=== PATIENT | female | born 1965 | race Caucasian/White ===

== ENCOUNTER 2024-11-15 14:39 | Outpatient (AMB) | payer OTHER, SELFPAY ==
--- NOTE | 2024-11-15 14:40 | MHC.OFFWIV ---
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 Patient states she was breaking up her 2 cats when she was scratched and bit on her anterior chest wall and arms bilaterally. Of concern today, however is a laceration on the back of her head that she believes was due to a cat scratch. Patient states that last night she took a shower and cleansed it with soap. Patient denies having any fevers, chills, discharge from any of the lesions noted. Patient believes her tetanus immunization is up-to-date. [facility]LY [facility] Social History Patient Tobacco Use Status: Never used Tobacco Patient : No Review of Systems Const All systems reviewed & are unremarkable except as noted in HPI and below Denies chills, Denies fever(s), Reports headache(s) and Denies malaise ENT Denies dizziness and Reports headache(s) GI Denies nausea and Denies vomiting Skin/Breast Details: Multiple abrasions Neuro Reports no additional complaints, Denies confusion, Denies dizziness and Reports headache(s) Psych Reports no additional complaints and Denies confusion Physical Exam Vital Signs: Last Vital Signs Temp 98.8 F 11/15/24 14:41 Pulse 90 11/15/24 14:41 BP 138/84 11/15/24 14:41 Pulse Ox 98 11/15/24 14:41 Oxygen Delivery Method Room Air 11/15/24 14:41 BMI result Body Mass Index 29.9 Const General: cooperative, healthy appearing, comfortable, no acute distress, well developed, alert, awake and Physically active; No acute distress or confusion Nutritional Appearance: overweight Orientation/consciousness: patient oriented x3 and No confusion Limitations: no limitations HEENT Head: Yes scalp lesion (1.5cm linear laceration right parietal region; no active bleeding) Skin Other: Multiple linear surface abrasions and puncture wounds on the upper extremities bilaterally with associated minimal ecchymosis, no surrounding erythema, no discharge, mild tenderness to direct examination Neuro General: patient oriented x3, CN's II-XI intact bilaterally and No confusion Psych Appearance: grossly normal Mental Status: mental status grossly normal Insight: Good insight present (Psych) Judgement: Good judgement present (Psych) Assessment & Plan Assessment & Plan (1) Cat bite: Comment: Patient has multiple bites, abrasions and a laceration on her posterior scalp as a result of the cat fight. The lesion on her scalp is cleansed with sterile saline and povidone solution. Patient will be discharged home with prophylactic antibiotic therapy. Code(s): W55.01XA - Bitten by cat, initial encounter Qualifiers: Encounter type: initial encounter Qualified Code(s): W55.01XA - Bitten by cat, initial encounter Plan: Augmentin 875 b.i.d. x 5 days; patient is instructed to follow up fevers, chills, discharge from the lesions or any other concerns related to her injuries. Patient is in agreement with this plan of care. Medications: New amoxicillin-pot clavulanate 875-125 mg 1 tab PO Q12H 10 tabs 0RF Coding Level of Care Code New Pt Level 4 (93520) Diagnoses Cat bite, initial encounter W55.01XA Encounter type: initial encounter Time Spent (min) 20
[2024-11-15 14:41] VITALS: BP 138/84; PULSE 90; TEMP 37.1; O2SAT 98; BMI 29.9
--- OUTSIDE RECORDS SUMMARY | 2024-11-15 14:41 | XMS_ITS | Patient Health Record ---
Author Organization [facility] Address [address] [place] [address] [address] [place] [address] Care Team Providers Care Dispatch Associate Name Role Phone Dacia Enriquez Unavailable [phone] Reason For Referral No Information Problems Problem Type SNOMED Code ICD Code Onset Dates Problem Status W/U Status Risk Notes Problem Postmenopausal bleeding (84144946) Postmenopausal bleeding (N95.0) Active confirmed Problem Postcoital bleeding (87435821) Postcoital and contact bleeding (N93.0) Active confirmed Problem Asymptomatic microscopic hematuria (3225910362412092 9) Asymptomatic microscopic hematuria (R31.21) Active confirmed Problem 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 (219.1) Active confirmed Major Problem Migraine (disorder) (35993912) Migraine, unspecified without mention of intractable migraine without mention of status migrainosus (346.90) Active confirmed Major Problem Cyst of ovary (37509704) Other and unspecified ovarian cyst (620.2) Active confirmed Major Problem Allergy (109251710) Allergy, unspecified not elsewhere classified (995.3) Active confirmed Diag Problem Gynecological examination normal (838876617895525) Routine gynecological examination (V72.31) Active confirmed Problem Dietary management surveillance (327255483) Dietary surveillance and counseling (V65.3) Active confirmed Diag Problem Exercises teaching, guidance, and counseling (822879438) Exercise counseling (V65.41) Active confirmed Diag Plan Of Treatment Pending Test Test Name Order Date MAMMOGRAM, SCREENING 10/22/2014 Urinalysis 10/22/2014 Urinalysis 02/08/2018 Urinalysis 01/12/2017 THIN PREP,HPV,TINY IF HPV+ (>29YR)(SCRN) 01/12/2017 MM Digital Mammo Screening 02/18/2019 MM Digital Mammo Screening 01/12/2017 MM Digital Mammo Screening 02/08/2018 Insurance Providers Payer Name Payer Address Payer Phone Subscriber Number Group Number Insured Name Patient Relationship to Insured Coverage Start Date Coverage End Date FORMERLY [facility] [employer]MNITY PLAN [address] [place], [place] [id number] DYANA CEBALLOS Self - patient is the insured Medical (General) History Medical History History ICD Code Postcoital and contact bleeding N93.0 Other allergy, initial encounter T78.49X A Other ovarian cyst, unspecified side N83 .299 Migraine, unspecified, not intractable, without status migrainosus G43.909 Other benign neoplasm of corpus uteri D2 6.1 Inconclusive mammogram R92.2 Asymptomatic microscopic hematuria R31.2 1 Postmenopausal bleeding N95.0 Surgical History Surgery Date(Month/Year) Colonoscopy
== END 2024-11-15 15:26 | disposition home or self-care (01) ==
PROVIDERS: Visit Provider Physician Assistant
DX: S01.01XA Laceration without foreign body of scalp, initial encounter (principal); W55.01XA Bitten by cat, initial encounter